=== PATIENT | male | born 1995 | race Caucasian/White ===

== ENCOUNTER 2025-06-29 12:02 | Emergency (ER) | payer SELFPAY ==
[2025-06-29] MEDS ORDERED: HYDROcodone/Acetaminophen 5/325 mg Tablet ONE (13:17)
[2025-06-29] MEDS ORDERED: CEFAZOLIN 2 GM VIAL ONE (13:17)
== END 2025-06-29 14:05 | disposition home or self-care (01) ==
LOC: MADERS 12:02
DX: S67.194A Crushing injury of right ring finger, initial encounter (principal); S67.21XA Crushing injury of right hand, initial encounter; S62.634A Displaced fracture of distal phalanx of right ring finger, initial encounter for closed fracture; S61.214A Laceration without foreign body of right ring finger without damage to nail, initial encounter; S61.204A Unspecified open wound of right ring finger without damage to nail, initial encounter; F17.210 Nicotine dependence, cigarettes, uncomplicated; W23.1XXA Caught, crushed, jammed, or pinched between stationary objects, initial encounter
CPT/HCPCS: 90471; 90715; 96372